=== PATIENT | male | born 1985 | race Caucasian/White ===

== ENCOUNTER 2016-03-29 16:21 | Emergency (ER) | payer OTHER ==
[2016-03-29 17:09] VITALS: BP 150/91; PULSE 95; RESP 18; TEMP 99.5
--- NOTE | 2016-03-29 18:29 | ED ---
General Adult HPI - General Chief complaint: Back Pain/Injury Stated complaint: Fall/Back Pain Time Seen by Provider: 03/29/16 18:01 Source: patient, RN notes reviewed Mode of arrival: ambulatory Limitations: no limitations - History of Present Illness Initial comments: Patient a 30-year-old male who presents emergency room today with chief complaint of increased lower back pain on the right side after a fall. He does with this fall occurred 2 weeks ago. He states he slipped falling down. Admits that he's been having some discomfort of the right lower back it's worse with movements. Patient denies any bowel or bladder incontinence or retention. Denies any saddle anesthesia. Denies any lumbar radiculopathy. Patient denies any other complaints or associated symptoms. Patient has not tried any medications at home for this. Patient denies any recent fever, chills, shortness of breath, chest pain, abdominal pain, nausea or vomiting, numbness or tingling, dysuria or hematuria, constipation or diarrhea, headaches or visual changes, or any other complaints. - Related Data Previous Rx's Medication Instructions Recorded Cyclobenzaprine [Flexeril] 10 mg PO TID #20 tab 03/29/16 Dexamethasone 0.75 mg PO DIRECTED #12 tablet 03/29/16 Ibuprofen [Motrin] 600 mg PO Q6HR PRN #40 day 03/29/16 Allergies Allergy/AdvReac Type Severity Reaction Status Date / Time No Known Allergies Allergy Verified 03/29/16 18:21 Review of Systems ROS Statement: Those systems with pertinent positive or pertinent negative responses have been documented in the HPI. ROS Other: All systems not noted in ROS Statement are negative. Past Medical History Additional Past Medical History / Comment(s): muscular dystrophy History of Any Multi-Drug Resistant Organisms: None Reported Additional Past Surgical History / Comment(s): bilateral feet, right arm Past Psychological History: No Psychological Hx Reported Smoking Status: Current every day smoker Past Alcohol Use History: None Reported Past Drug Use History: None Reported General Exam - General Exam Comments Initial Comments: General: The patient is awake and alert, in no distress, and does not appear acutely ill. Eye: Pupils are equal, round and reactive to light, extra-ocular movements are intact. No nystagmus. There is normal conjunctiva bilaterally. No signs of icterus. Ears, nose, mouth and throat: There are moist mucous membranes and no oral lesions. Neck: The neck is supple, there is no tenderness or JVD. Cardiovascular: There is a regular rate and rhythm. No murmur, rub or gallop is appreciated. Respiratory: Lungs are clear to auscultation, respirations are non-labored, breath sounds are equal. No wheezes, stridor, rales, or rhonchi. Gastrointestinal: Soft, non-distended, non-tender abdomen without masses or organomegaly noted. There is no rebound or guarding present. No CVA tenderness. Bowel sounds are unremarkable. Musculoskeletal: Normal appearance of the thoracic, lumbar spine. No step- offs deformity appreciated. No tenderness over spinous processes. Patient does have paravertebral tenderness to the right lower lumbar. Strength 5/5. Sensation intact. Pulses equal bilaterally 2+. Neurological: A&O x 3. CN II-XII intact, There are no obvious motor or sensory deficits. Coordination appears grossly intact. Speech is normal. Skin: Skin is warm and dry and no rashes or lesions are noted. Psychiatric: Cooperative, appropriate mood & affect, normal judgment. Limitations: no limitations Course Vital Signs 03/29/16 17:06 Temperature 99.5 F Pulse Rate 95 Respiratory 18 Rate Blood Pressure 150/91 O2 Sat by Pulse 97 Oximetry Medical Decision Making - Medical Decision Making Patient reexamined at this time shows no signs of distress. X-rays reviewed by myself and attending physician Dr. Richardson. Patient will be discharged home on muscle relaxer, anti-inflammatories and steroid Dosepak. Disposition Clinical Impression: Acute low back pain Disposition: HOME SELF-CARE Condition: Good Instructions: Acute Low Back Pain (ED) Additional Instructions: Please use medication as discussed. Please follow-up with family doctor in the next 2 days of symptoms have not improved. Please return to emergency room if the symptoms increase or worsen or for any other concerns. Prescriptions: Cyclobenzaprine [Flexeril] 10 mg PO TID #20 tab Dexamethasone 0.75 mg PO DIRECTED #12 tablet Ibuprofen [Motrin] 600 mg PO Q6HR PRN #40 day PRN Reason: Pain Time of Disposition: 18:50
--- NOTE | 2016-03-29 18:57 | XR ---
EXAMINATION TYPE: XR lumbar spine 2 or 3V DATE OF EXAM: 03/29/2016 6:29 PM CLINICAL HISTORY: EXAMINATION TYPE: XR lumbar spine 2 or 3V DATE OF EXAM: 03/29/2016 6:29 PM COMPARISON: NONE HISTORY: Low back pain and right hip pain after fall weeks ago. TECHNIQUE: Frontal and lateral radiograph were obtained. FINDINGS: There are 5 lumbar type vertebral bodies identified although there is sacralization of the L5 vertebral body on the left. The lumbar spine shows satisfactory alignment without evidence of acu te fracture or dislocation. There is very small degree of dextroscoliotic curvature of the thoracolum bar junction and lower aspect with levoscoliotic curvature of the thoracolumbar junction in its super ior aspect. This may be positional in nature. Vertebral body heights and disk space heights are withi n normal limits. The oblique images appear within normal limits. The overlying soft tissue appears unremarkable. IMPRESSION: No evidence of fracture or dislocation.
== END 2016-03-29 19:13 | disposition home or self-care (01) ==
LOC: SUPCPDRO 16:21 → EC 16:21
DX: M54.5 Low back pain (principal); W01.0XXA Fall on same level from slipping, tripping and stumbling without subsequent striking against object, initial encounter; F17.200 Nicotine dependence, unspecified, uncomplicated
CPT/HCPCS: 72100; 99283

== ENCOUNTER 2021-06-18 13:22 | Inpatient (IN) | payer MEDICARE, OTHER ==
[2021-06-18 16:10] LABS: ALT 48 U/L (4-49); AST 71 U/L (17-59); African American GFR (CKD) >90 (>60 ml/min/1.73 sqM); Albumin 4.2 g/dL (3.5-5.0); Alkaline Phosphatase 143 U/L (38-126); Anion Gap 7 mmol/L; Blood Urea Nitrogen 5 mg/dL (9-20); Calcium 8.9 mg/dL (8.4-10.2); Carbon Dioxide 36 mmol/L (22-30); Chloride 94 mmol/L (98-107); Glucose 96 mg/dL (74-99); Non-African American GFR(CKD) >90 (>60 ml/min/1.73 sqM); Potassium 4.2 mmol/L (3.5-5.1); Sodium 137 mmol/L (137-145); Total Bilirubin 1.1 mg/dL (0.2-1.3); Total Protein 7.6 g/dL (6.3-8.2)
[2021-06-18 16:13] LABS: INR 1.1 (<1.2); Partial Thromboplastin Time 26.1 sec (22.0-30.0); Prothrombin Time 11.5 sec (9.0-12.0)
--- NOTE | 2021-06-18 16:23 | XR ---
EXAMINATION TYPE: XR chest 2V DATE OF EXAM: 06/18/2021 COMPARISON: 07/21/2014 HISTORY: Pain difficulty breathing TECHNIQUE: 2 views FINDINGS: There is some atelectasis at the lung bases. Heart size is normal. No heart failure. There are chest leads. Bony thorax is intact. There is slight thoracic dextroscoliosis. IMPRESSION: There is some atelectasis at the lung bases which is new compared to old exam.
[2021-06-18 16:38] LABS: Basophils # (A) 0.1 k/uL (0-0.2); Basophils % (A) 1 %; Eosinophils # (A) 0.1 k/uL (0-0.7); Eosinophils % (A) 2 %; Lymphocytes # (A) 1.7 k/uL (1.0-4.8); Lymphocytes % (A) 20 %; MCH 35.9 pg (25.0-35.0); MCHC 32.3 g/dL (31.0-37.0); Macrocytosis Marked; Mean Platelet Volume 7.4; Monocytes # (A) 0.6 k/uL (0-1.0); Monocytes % (A) 8 %; Neutrophils # (A) 5.6 k/uL (1.3-7.7); Neutrophils % (A) 67 %; Platelet Count 200 k/uL (150-450); RBC 5.02 m/uL (4.30-5.90); RDW 14.7 % (11.5-15.5); WBC 8.3 k/uL (3.8-10.6)
[2021-06-18 16:39] LABS: HCT 55.7 % (39.0-53.0)
--- NOTE | 2021-06-18 17:57 | ED ---
General Adult HPI - General Chief complaint: Shortness of Breath Stated complaint: JEFF,Bilateral Leg Pain and Swelling Time Seen by Provider: 06/18/21 15:22 Source: patient, RN notes reviewed, old records reviewed Mode of arrival: wheelchair Limitations: no limitations - History of Present Illness Initial comments: She is a 35-year-old male with history of muscular dystrophy who presents emergency Department complaining of two-week history of progressive shortness of breath, difficulty breathing, as well as swelling to bilateral legs. No history of this previously. No cardiac history. Hasn't followed up with doctor in quite some time. No history of blood clots. Denies any cough or fevers. Denies any chest pain. Denies abdominal pain, nausea, vomiting. His no other acute concerns at this time.Endorses orthopnea, PND, exertional dyspnea, lower extremity edema. - Related Data Home Medications Medication Instructions Recorded Confirmed No Known Home Medications 06/18/21 06/18/21 Allergies Allergy/AdvReac Type Severity Reaction Status Date / Time amoxicillin Allergy Rash/Hives Verified 06/18/21 17:38 Review of Systems ROS Statement: Those systems with pertinent positive or pertinent negative responses have been documented in the HPI. Review of Systems: CONST: Denies fever EYES: Denies blurry vision ENT: Denies nasal congestion C/V: Denies Chest pain RESP: Endorses shortness of breath GI: Denies abdominal pain : Denies dysuria SKIN: Denies rash. MSK: Denies joint pain. NEURO: Denies headache ROS Other: All systems not noted in ROS Statement are negative. Past Medical History Additional Past Medical History / Comment(s): muscular dystrophy History of Any Multi-Drug Resistant Organisms: None Reported Additional Past Surgical History / Comment(s): bilateral feet, right arm Past Psychological History: No Psychological Hx Reported Smoking Status: Current every day smoker Past Alcohol Use History: None Reported Past Drug Use History: None Reported General Exam - General Exam Comments Initial Comments: General: Appears in no acute distress. HEAD: Normal with no signs of head trauma. EYES: PERRLA, EOMI, conjunctiva normal, no discharge. ENT: Hearing grossly intact, normal oropharynx. RESPIRATORY: Clear breath sounds bilaterally. No wheezes, rales, or rhonchi. Hypoxic on room air to 80%. Improves to above 95% with 2 L nasal cannula. No increased work of breathing. C/V: Tachycardic in triage. S1 and S2 auscultated. Peripheral pulses 2+ intact throughout. 2+ pitting edema bilateral lower extremities up to level the knee. ABD: Abd is soft, nontender, nondistended EXT: Normal range of motion, no obvious deformity SKIN: No rashes or lesions observed on exposed skin. NEURO: Alert and oriented 4. Limitations: no limitations Course Vital Signs 06/18/21 06/18/21 06/18/21 13:25 16:28 16:44 Temperature 98.5 F Pulse Rate 107 H Respiratory 20 24 Rate Blood Pressure 162/100 154/96 O2 Sat by Pulse 92 L Oximetry 06/18/21 17:25 Temperature Pulse Rate 86 Respiratory 18 Rate Blood Pressure 157/103 O2 Sat by Pulse 97 Oximetry Procedures - [facility] Protocol (Time Out) Nurse: Francia Hernandez Medical Decision Making - Medical Decision Making Based on the patient's presentation and physical exam I'm concerned for possible acute cardio pulmonary etiology for his current symptoms. Cannot rule out pulmonary embolus and. Screening d-dimer and cardiac workup will be obtained. Covid swab will be obtained. Patient was placed on 2 L nasal cannula and oxygenation improved. Vital signs of head and hypoxia remarkable for mild tach ycardia. Remainder the vitals are within normal limits. He was in agreement this plan. EKG showed no signs of ischemia. Chest x-ray reveals new atelectasis in the bilateral lung bases. Hemoglobin is elevated to 18. D-dimer is elevated to 1.4 to. Carbon dioxide is elevated at 36 likely secondary to his hypoxia and dyspnea. Troponin is minimally elevated to 0.035 likely secondary to heart fa ilure, BNP is elevated for his age to 549. Covid and fluent negative. I discussed results patient. He is resting comfortably at this time. I like to obtain a CT angiogram to rule out possibility of pulmonary was in. I was in agreement this plan. CT PE revealed no signs of PE. It does reveal bilateral patchy atelectasis at both lung bases. I discussed the results with the patient who Expressed understanding. He'll be started on Lasix twice a day. She will be given an aspirin as well as started on DVT prophylaxis heparin. He was in agreement this plan. Echo was ordered. Cardiology was consulted. I discussed the case with the admitting physician, Dr. Gairbay was in agreement with the plan. Admitted to a telemetry bed. - Lab Data Result diagrams: 06/18/21 15:45 06/18/21 15:45 Lab Results 06/18/21 06/18/21 06/18/21 Range/Units 15:45 15:45 15:45 WBC 8.3 (3.8-10.6) k/uL RBC 5.02 (4.30-5.90) m/uL Hgb 18.0 H (13.0-17.5) gm/dL Hct 55.7 H (39.0-53.0) % MCV 111.0 H (80.0-100.0) fL MCH 35.9 H (25.0-35.0) pg MCHC 32.3 (31.0-37.0) g/dL RDW 14.7 (11.5-15.5) % Plt Count 200 (150-450) k/uL MPV 7.4 Neutrophils % 67 % Lymphocytes % 20 % Monocytes % 8 % Eosinophils % 2 % Basophils % 1 % Neutrophils # 5.6 (1.3-7.7) k/uL Lymphocytes # 1.7 (1.0-4.8) k/uL Monocytes # 0.6 (0-1.0) k/uL Eosinophils # 0.1 (0-0.7) k/uL Basophils # 0.1 (0-0.2) k/uL Macrocytosis Marked A PT 11.5 (9.0-12.0) sec INR 1.1 (<1.2) APTT 26.1 (22.0-30.0) sec D-Dimer 1.42 H (<0.60) mg/L FEU Sodium 137 (137-145) mmol/L Potassium 4.2 (3.5-5.1) mmol/L Chloride 94 L (98-107) mmol/L Carbon Dioxide 36 H (22-30) mmol/L Anion Gap 7 mmol/L BUN 5 L (9-20) mg/dL Creatinine 0.82 (0.66-1.25) mg/dL Est GFR (CKD-EPI)AfAm >90 (>60 ml/min/1.73 sqM) Est GFR (CKD-EPI)NonAf >90 (>60 ml/min/1.73 sqM) Glucose 96 (74-99) mg/dL Plasma Lactic Acid Omid (0.7-2.0) mmol/L Calcium 8.9 (8.4-10.2) mg/dL Total Bilirubin 1.1 (0.2-1.3) mg/dL AST 71 H (17-59) U/L ALT 48 (4-49) U/L Alkaline Phosphatase 143 H (38-126) U/L Troponin I (0.000-0.034) ng/mL NT-Pro-B Natriuret Pep pg/mL Total Protein 7.6 (6.3-8.2) g/dL Albumin 4.2 (3.5-5.0) g/dL Coronavirus (PCR) (Not Detectd) Influenza Type A RNA (Not Detectd) Influenza Type B (PCR) (Not Detectd) 06/18/21 06/18/21 06/18/21 Range/Units 15:45 15:45 15:45 WBC (3.8-10.6) k/uL RBC (4.30-5.90) m/uL Hgb (13.0-17.5) gm/dL Hct (39.0-53.0) % MCV (80.0-100.0) fL MCH (25.0-35.0) pg MCHC (31.0-37.0) g/dL RDW (11.5-15.5) % Plt Count (150-450) k/uL MPV Neutrophils % % Lymphocytes % % Monocytes % % Eosinophils % % Basophils % % Neutrophils # (1.3-7.7) k/uL Lymphocytes # (1.0-4.8) k/uL Monocytes # (0-1.0) k/uL Eosinophils # (0-0.7) k/uL Basophils # (0-0.2) k/uL Macrocytosis PT (9.0-12.0) sec INR (<1.2) APTT (22.0-30.0) sec D-Dimer (<0.60) mg/L FEU Sodium (137-145) mmol/L Potassium (3.5-5.1) mmol/L Chloride (98-107) mmol/L Carbon Dioxide (22-30) mmol/L Anion Gap mmol/L BUN (9-20) mg/dL Creatinine (0.66-1.25) mg/dL Est GFR (CKD-EPI)AfAm (>60 ml/min/1.73 sqM) Est GFR (CKD-EPI)NonAf (>60 ml/min/1.73 sqM) Glucose (74-99) mg/dL Plasma Lactic Acid Omid 1.3 (0.7-2.0) mmol/L Calcium (8.4-10.2) mg/dL Total Bilirubin (0.2-1.3) mg/dL AST (17-59) U/L ALT (4-49) U/L Alkaline Phosphatase (38-126) U/L Troponin I 0.035 H* (0.000-0.034) ng/mL NT-Pro-B Natriuret Pep 549 pg/mL Total Protein (6.3-8.2) g/dL Albumin (3.5-5.0) g/dL Coronavirus (PCR) (Not Detectd) Influenza Type A RNA (Not Detectd) Influenza Type B (PCR) (Not Detectd) 06/18/21 06/18/21 Range/Units 15:45 15:54 WBC (3.8-10.6) k/uL RBC (4.30-5.90) m/uL Hgb (13.0-17.5) gm/dL Hct (39.0-53.0) % MCV (80.0-100.0) fL MCH (25.0-35.0) pg MCHC (31.0-37.0) g/dL RDW (11.5-15.5) % Plt Count (150-450) k/uL MPV Neutrophils % % Lymphocytes % % Monocytes % % Eosinophils % % Basophils % % Neutrophils # (1.3-7.7) k/uL Lymphocytes # (1.0-4.8) k/uL Monocytes # (0-1.0) k/uL Eosinophils # (0-0.7) k/uL Basophils # (0-0.2) k/uL Macrocytosis PT (9.0-12.0) sec INR (<1.2) APTT (22.0-30.0) sec D-Dimer (<0.60) mg/L FEU Sodium (137-145) mmol/L Potassium (3.5-5.1) mmol/L Chloride (98-107) mmol/L Carbon Dioxide (22-30) mmol/L Anion Gap mmol/L BUN (9-20) mg/dL Creatinine (0.66-1.25) mg/dL Est GFR (CKD-EPI)AfAm (>60 ml/min/1.73 sqM) Est GFR (CKD-EPI)NonAf (>60 ml/min/1.73 sqM) Glucose (74-99) mg/dL Plasma Lactic Acid Omid (0.7-2.0) mmol/L Calcium (8.4-10.2) mg/dL Total Bilirubin (0.2-1.3) mg/dL AST (17-59) U/L ALT (4-49) U/L Alkaline Phosphatase (38-126) U/L Troponin I (0.000-0.034) ng/mL NT-Pro-B Natriuret Pep pg/mL Total Protein (6.3-8.2) g/dL Albumin (3.5-5.0) g/dL Coronavirus (PCR) Not Detected (Not Detectd) Influenza Type A RNA Not Detected (Not Detectd) Influenza Type B (PCR) Not Detected (Not Detectd) - EKG Data -: EKG Interpreted by Me EKG Comments: 12-lead Electrocardiogram Interpretation Note EKG was reviewed and interpreted by myself. 12-lead ECG performed at 1333 is interpreted by me as revealing normal sinus rhythm at a rate of 97 beats per minute. [place] is normal. HI intervals 135 ms, QRS duration is 90 ms, QTc is 413 ms. Patient has an isolated T-wave inversion in lead III.. There were other acute no ST or T wave abnormalities to suggest myocardial ischemia or injury. R wave progression across the precordium was satisfactory. By my interpretation this EKG is non-diagnostic for acute ischemia. Disposition Clinical Impression: Congestive heart failure, Acute respiratory failure with hypoxia Disposition: ADMITTED IP TO THIS HOSP Condition: Stable Time of Disposition: 18:50
--- NOTE | 2021-06-18 18:55 | CT ---
EXAMINATION TYPE: CT chest angio for PE DATE OF EXAM: 06/18/2021 COMPARISON: None HISTORY: Elevated d-dimer, concern for PE. Denies cardiac/pulmonary hx. CT DLP: 290.8 mGycm Automated exposure control for dose reduction was used. CONTRAST: Performed with IV Contrast, patient injected with 100 mL of Isovue 370. There are Three-D postprocessed images. There is some patchy atelectasis at the lung bases. Heart size is fairly normal. No pericardial effus ion. There are no hilar masses. There is no mediastinal adenopathy. Thoracic aorta appears intact. No dissection. 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 There is no evidence of filling defect in the pulmonary arteries. Thoracic spine is intact. No compression fracture. IMPRESSION: No evidence of pulmonary embolism. Patchy atelectasis at both lung bases.
[2021-06-18] MEDS ORDERED: NALOXONE 0.4 MG/ML 1 ML VIAL IV PRN (19:08)
[2021-06-18] MEDS ORDERED: ASPIRIN 81 MG PO STA (19:14)
[2021-06-18] MEDS: FUROSEMIDE 10 MG/ML 4 ML VIAL IV SCH (20:00)
[2021-06-19] MEDS: HEPARIN SODIUM,PORCINE/PF 5,000 UNIT/0.5 ML SYRINGE SQ SCH ×4 (02:57→23:46)
[2021-06-19] MEDS ORDERED: FUROSEMIDE 10 MG/ML 4 ML VIAL ONE (07:00)
[2021-06-19] MEDS ORDERED: HEPARIN SODIUM,PORCINE 5,000 UNIT/ML 1 ML VIAL ONE (07:00)
[2021-06-19 07:12] LABS: Basophils # (A) 0.1 k/uL (0-0.2); Basophils % (A) 2 %; Eosinophils # (A) 0.2 k/uL (0-0.7); Eosinophils % (A) 3 %; HCT 54.9 % (39.0-53.0); HGB 16.7 gm/dL (13.0-17.5); Hypochromasia Slight; Lymphocytes # (A) 1.5 k/uL (1.0-4.8); Lymphocytes % (A) 20 %; MCH 34.2 pg (25.0-35.0); MCHC 30.5 g/dL (31.0-37.0); MCV 112.3 fL (80.0-100.0); Macrocytosis Marked; Mean Platelet Volume 7.3; Monocytes # (A) 0.7 k/uL (0-1.0); Monocytes % (A) 9 %; Neutrophils # (A) 4.7 k/uL (1.3-7.7); Neutrophils % (A) 65 %; Platelet Count 165 k/uL (150-450); RBC 4.89 m/uL (4.30-5.90); RDW 13.8 % (11.5-15.5); WBC 7.2 k/uL (3.8-10.6)
[2021-06-19 07:28] LABS: African American GFR (CKD) >90 (>60 ml/min/1.73 sqM); Anion Gap 4 mmol/L; Blood Urea Nitrogen 7 mg/dL (9-20); Calcium 8.5 mg/dL (8.4-10.2); Carbon Dioxide 38 mmol/L (22-30); Chloride 93 mmol/L (98-107); Glucose 87 mg/dL (74-99); Non-African American GFR(CKD) >90 (>60 ml/min/1.73 sqM); Sodium 135 mmol/L (137-145)
[2021-06-19] MEDS ORDERED: lisinopriL 10 MG TAB PO SCH (11:15)
[2021-06-19] MEDS ORDERED: METOPROLOL SUCCINATE (ER) 25 MG TAB.ER.24H PO SCH (11:15)
[2021-06-19] MEDS: FUROSEMIDE 10 MG/ML 4 ML VIAL IV SCH ×2 (12:02→18:45)
--- NOTE | 2021-06-19 13:03 | CONS ---
CONSULTATION CHIEF COMPLAINT: Leg edema and shortness of breath. 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 There is no prior history of coronary artery disease or congestive heart failure. There is no prior history of valvular heart disease. The patient is currently not on any medications. He has history of smoking and history of ETOH abuse. On admission, he was found to have bilateral leg edema and was started on Lasix. His BNP is not particularly elevated. Chest x-ray does not show any pulmonary congestion. He had elevated D-dimer and went on to have a CT scan of the chest that is negative for pulmonary embolism. The patient's clinical presentation is consistent with acute onset congestive heart failure. We will obtain a 2D echo to assess his LV function. He could have hypertensive heart disease. His blood pressures are elevated. PAST MEDICAL HISTORY: Negative for hypertension, diabetes, dyslipidemia, significant for muscular dystrophy. MEDICATIONS: None. ALLERGIES: None. FAMILY HISTORY: Negative for premature coronary artery disease. SOCIAL HISTORY: Significant for smoking and ETOH abuse. There is no history of drug abuse. REVIEW OF SYSTEMS: HEENT: Unremarkable. CARDIAC as described above. RESPIRATORY as described above. GI negative. : Negative. ALLERGY/IMMUNOLOGY: None. SKIN negative. MUSCULOSKELETAL: Significant for muscular dystrophy. PSYCHOSOCIAL: Negative. ENDOCRINE: Negative. CONSTITUTIONAL negative. ONCOLOGICAL negative. EXAM: Comfortable at rest. Heart rate is 90 beats per minute. Blood pressure is 140/100, respiratory rate is 18. There is no jugular venous distention. Carotid upstroke is normal. There is no bruit. CHEST exam reveals good air entry bilaterally. HEART exam reveals first and second heart sounds. No gallop. No murmur. No rub. ABDOMEN is soft. Exam of EXTREMITIES reveals bilateral moderate pitting edema. EKG shows sinus rhythm with poor R-wave progression. The first set of troponin is slightly elevated with subsequent 2 troponins abnormal. Renal functions are normal. BNP is not particularly elevated. CT chest is negative. ASSESSMENT: 1. Acute onset congestive heart failure of unclear etiology. 2. Uncontrolled hypertension. 3. Mildly elevated troponin of unclear clinical significance. PLAN: I will obtain a 2D echo to assess his LV function and wall motion. If he has LV systolic dysfunction and wall motion abnormalities, he will need a cardiac catheterization to rule out ischemic heart disease. We will treat his heart failure with Lasix, beta blockers, MOOSE inhibitors and optimal control of blood pressure. I advised the patient to quit smoking and quit drinking. MMODL / IJN: [id number] /
--- NOTE | 2021-06-19 13:10 | HP ---
HISTORY AND PHYSICAL This is a 35-year-old white male with a history of muscular dystrophy who came to the ER with progressive shortness of breath, difficulty with swelling to his lower legs. He has no cardiac history. No history of blood clots. No cough or fever. No chills. Medicines: None. Allergies: AMOXICILLIN. Fourteen-point review of systems otherwise negative. Past medical history is positive only for muscular dystrophy. He is a current everyday smoker. On physical examination, blood pressure is 150s to 160s over 90s to 100s, pulse rate is like 107, respiratory rate 20 to 24, temperature 98.5. CARDIOVASCULAR: S1, S2. ABDOMEN: Soft. EXTREMITIES: Two plus edema. NEUROLOGIC: Alert and oriented x3. HEAD: No trauma. No bruising. SKIN: No rashes. PUPILS: Equal, round and reactive. LUNGS: Mild wheeze. Decreased breath sounds. Down to 80% on room air. Oxygen 95% with 2 L. ASSESSMENT: Acute hypoxemia of unclear etiology. Will get Pulmonology involved and Cardiology. We are going to give him some Lasix for possible CHF. Echo was ordered. We are going to do a CT scan of his chest for sure due to elevated CO2, possibly sleep apnea. COVID and influenza are negative. Continue on 2 L of oxygen. Prognosis guarded. MMODL / IJN: [id number] /
[2021-06-19] MEDS: METOPROLOL SUCCINATE (ER) 25 MG TAB.ER.24H PO SCH (13:29)
[2021-06-19] MEDS: lisinopriL 10 MG TAB PO SCH (13:29)
[2021-06-20] MEDS ORDERED: ZOLPIDEM 5 MG TAB PO ONE (00:16)
[2021-06-20] MEDS: FUROSEMIDE 10 MG/ML 4 ML VIAL IV SCH ×2 (06:28→18:05)
--- NOTE | 2021-06-20 06:40 | XR ---
EXAMINATION TYPE: XR chest 2V DATE OF EXAM: 06/20/2021 COMPARISON: Chest x-ray and CTA chest from 2 days ago. HISTORY: Hypoxia and lower lung infiltrates TECHNIQUE: Frontal and lateral views of the chest are obtained. FINDINGS: Persistent low lung volumes and bibasilar opacities. The cardiac silhouette size is stabl e and mildly enlarged. Underlying Scoliosis redemonstrated. IMPRESSION: Persistent poor inspiration. Persistent mild cardiomegaly with bibasilar acute infiltrat e and/or atelectasis. No significant change from 2 days earlier.
[2021-06-20] MEDS: lisinopriL 10 MG TAB PO SCH (08:29)
[2021-06-20] MEDS: HEPARIN SODIUM,PORCINE/PF 5,000 UNIT/0.5 ML SYRINGE SQ SCH ×3 (08:29→23:25)
[2021-06-20] MEDS: METOPROLOL SUCCINATE (ER) 25 MG TAB.ER.24H PO SCH (08:30)
[2021-06-20] MEDS ORDERED: lisinopriL 10 MG TAB PO STA (08:46)
[2021-06-20] MEDS: amLODIPine 5 MG TAB PO SCH (11:41)
--- NOTE | 2021-06-20 12:22 | P.PN ---
Subjective Progress Note Date: 06/20/21 HISTORY OF PRESENT ILLNESS: Patient examined this morning in the intensive care unit. Patient denies chest pain or pressure. He denies shortness of breath. He remains on IV Lasix 40 mg every 12 hours. Lower extremity edema is improving. Patient's blood pressure remains elevated this morning with a systolic in the 160s. PHYSICAL EXAM: VITAL SIGNS: Reviewed. GENERAL: Well-developed in no acute distress. NECK: Supple. No JVD or thyromegaly LUNGS: Respirations even and unlabored. Lungs diminished to auscultation bilaterally. HEART: Regular rate and rhythm. S1 and S2 heard. EXTREMITIES: Normal range of motion. No clubbing or cyanosis. Peripheral pu lses intact. 1-2+ bilateral lower extremity edema ASSESSMENT: Acute onset congestive heart failure of unclear etiology, type unknown, echo pending Uncontrolled hypertension Mildly elevated troponin of unclear significance PLAN: Continue IV Lasix Monitor kidney function Daily weights Accurate I&O Monitor blood pressure Increase lisinopril to 20mg daily Norvasc 5 mg daily Abstinence from alcohol encouraged Smoking cessation recommended Further recommendations pending patient's course Nurse practitioner note has been reviewed by physician. Signing provider agrees with the documented findings, assessment, and plan of care. Objective - Vital Signs Vital signs: Vital Signs Temp 98.4 F 06/20/21 12:00 Pulse 73 06/20/21 12:00 Resp 16 06/20/21 12:00 BP 148/101 06/20/21 12:00 Pulse Ox 94 L 06/20/21 12:00 Intake & Output 06/19/21 06/20/21 06/20/21 18:59 06:59 18:59 Output Total 1200 Balance -1200 Weight 83.915 kg 83 kg Output: Urine 1200 Other: # Voids 3 - Labs CBC & Chem 7: 06/19/21 06:00 06/19/21 06:40 Labs: Microbiology - Last 24 Hours (Table) 06/18/21 15:45 Blood Culture - Preliminary Blood No Growth after 24 hours 06/18/21 15:30 Blood Culture - Preliminary Blood No Growth after 24 hours
--- NOTE | 2021-06-20 17:45 | P.CNPUL ---
History of Present Illness Consult date: 06/20/21 (Late entry note, patient evaluated this morning) Reason for consult: dyspnea, cough, hypoxemia Chief complaint: Shortness of breath History of present illness: Patient is a 35-year-old pleasant male with prior history of muscular dystrophy came into the hospital for evaluation off progressive shortness of breath which is been going on for last 2 weeks in addition patient was having lower extremity edema dry nonproductive cough is present, patient admitted into the hospital with hypoxia and desaturation oxygen saturation is mid to low 80s, with 4 L sats remains over around 88-90% however this morning oxygen saturation significantly improve on 4 L and 95-96% patient feels slightly better on specific questioning denies any chest pain or radiation of pain denies any hemoptysis has ongoing cough, denies any loss of consciousness or weakness dizziness lightheadedness, denies any fever and chills however does have problems associated orthopnea and dyspnea and PND which all have been progressive. Patient is noncompliant by history does not seek medical care mostly he is not on any medications. He has a extensive history of smoking and nicotine use used to smoke one and half to 2 packs per day. On arrival his chest x-ray significant for atelectasis on the lung bases, EKG is normal sinus rhythm, follow-up chest x-ray earlier this morning cardiomegaly interstitial edema by basilar atelectasis versus infil trate. CBC mild erythrocytosis along with macrocytic appearance, kidney function within normal limit, troponin 2. initial 0.035 followed by a second set 0.0-8, covert as well as influenza negative, patient currently being treated with the antihypertensive agents along with diuretics. Throughout the stay blood pressure was elevated ranging from 157/100 Review of Systems All systems: negative Past Medical History Past Medical History: GERD/Reflux, Musculoskeletal Disorder, Neurologic Disorder Additional Past Medical History / Comment(s): muscular dystrophy, low back pain History of Any Multi-Drug Resistant Organisms: None Reported Past Surgical History: Orthopedic Surgery Additional Past Surgical History / Comment(s): R arm fracture with surgery, bilateral feet surgery d/t complications of MD Past Anesthesia/Blood Transfusion Reactions: No Reported Reaction Smoking Status: Current every day smoker - Past Family History Father Family Medical History: Hyperlipidemia, Hypertension Mother Family Medical History: Hyperlipidemia, Hypertension Medications and Allergies Home Medications Medication Instructions Recorded Confirmed Type No Known Home Medications 06/18/21 06/18/21 History Allergies Allergy/AdvReac Type Severity Reaction Status Date / Time amoxicillin Allergy Rash/Hives Verified 06/18/21 17:38 Physical Exam Vitals: Vital Signs Temp Pulse Resp BP Pulse Ox 06/20/21 15:15 76 17 152/99 93 L 06/20/21 12:00 98.4 F 73 16 148/101 94 L 06/20/21 08:00 99 F 84 17 160/110 92 L 06/20/21 04:00 98.3 F 83 16 144/99 93 L 06/20/21 02:00 80 20 06/19/21 23:49 80 20 157/99 91 L 06/19/21 20:00 81 16 144/112 94 L 06/19/21 17:51 148/105 Intake and Output 06/20/21 06/20/21 06/20/21 06:59 14:59 22:59 Output Total 400 700 Balance -400 -700 Output: Urine 400 700 Other: Weight 83 kg - Constitutional General appearance: average body habitus, disheveled, morbidly obese - EENT Eyes: EOMI, PERRLA ENT: normal oropharynx Ears: bilateral: normal - Neck Neck: normal ROM Carotids: bilateral: upstroke normal - Respiratory Respiratory: bilateral: rales (Bilateral and inspiratory), wheezing (Fine on forced expiration) - Cardiovascular Rhythm: regular Heart sounds: normal: S1, S2 - Gastrointestinal General gastrointestinal: normal bowel sounds, soft - Integumentary Integumentary: normal turgor - Neurologic Neurologic: CNII-XII intact - Musculoskeletal Musculoskeletal: gait normal, generalized weakness, strength equal bilaterally - Psychiatric Psychiatric: A&O x's 3, appropriate affect, intact judgment & insight Results - Laboratory Findings CBC and BMP: 06/19/21 06:00 06/19/21 06:40 PT/INR, D-dimer PT 11.5 sec (9.0-12.0) 06/18/21 15:45 INR 1.1 (<1.2) 06/18/21 15:45 D-Dimer 1.42 mg/L FEU (<0.60) H 06/18/21 15:45 Abnormal lab findings: Abnormal Labs 06/18/21 06/18/21 06/18/21 15:45 15:45 15:45 Hgb 18.0 H Hct 55.7 H MCV 111.0 H MCH 35.9 H MCHC Macrocytosis Marked A D-Dimer 1.42 H Sodium Chloride 94 L Carbon Dioxide 36 H BUN 5 L AST 71 H Alkaline Phosphatase 143 H Troponin I 06/18/21 06/19/21 06/19/21 15:45 06:00 06:40 Hgb Hct 54.9 H MCV 112.3 H MCH MCHC 30.5 L Macrocytosis Marked A D-Dimer Sodium 135 L Chloride 93 L Carbon Dioxide 38 H BUN 7 L AST Alkaline Phosphatase Troponin I 0.035 H* - Diagnostic Findings Chest x-ray: report reviewed, image reviewed CT scan - chest: report reviewed, image reviewed (Finding as noted above) Assessment and Plan Assessment: Acute hypoxic respiratory failure Acute on chronic diastolic heart failure Hypertensive heart failure Bilateral basal atelectasis Extensive history of smoking and nicotine use History of muscular dystrophy Plan: Gentle diuresis Obtain echocardiogram Hold on steroids and antibiotics for now Obtained pro-calcitonin level Continue antihypertensive agents Patient likely has a sleep disorder breathing and sleep apnea to be evaluated further outpatient basis Time with Patient: Greater than 30
[2021-06-20 20:05] LABS: Glucose,Whole Blood 108 mg/dL (75-99)
[2021-06-21 05:25] VITALS: RESP 18
--- NOTE | 2021-06-21 07:37 | CA ---
Transthoracic Echo Report Name: Mio Davison Age: 35 Gender: M : 1985 Exam Date: 06/20/2021 10:42 Exam Location: [facility] Ht (in): 66 Wt (lb): 182 Ordering Physician: Margarita Pineda Attending/Referring Phys: [id number], Edwin [place] [employer] Jessika Garcia RDCS Procedure CPT: Indications: LV function Cardiac Hx: Technical Quality: Fair Contrast 1: Total Dose (mL): Contrast 2: Total Dose (mL): MEASUREMENTS (Male / Female) Normal Values 2D ECHO LV Diastolic Diameter PLAX 3.7 cm 4.2 - 5.9 / 3.9 - 5.3 cm LV Systolic Diameter PLAX 2.5 cm IVS Diastolic Thickness 1.2 cm 0.6 - 1.0 / 0.6 - 0.9 cm LVPW Diastolic Thickness 1.2 cm 0.6 - 1.0 / 0.6 - 0.9 cm LV Relative Wall Thickness 0.7 RV Internal Dim ED PLAX 2.2 cm LA Volume 46.4 cm 18 - 58 / 22 - 52 cm M-MODE Aortic Root Diameter MM 3.4 cm LA Systolic Diameter MM 4.1 cm LA Ao Ratio MM 1.2 MV E Point Septal Separation 0.1 cm AV Cusp Separation MM 2.3 cm DOPPLER AV Peak Velocity 123.7 cm/s AV Peak Gradient 6.1 mmHg LVOT Peak Velocity 96.5 cm/s LVOT Peak Gradient 3.7 mmHg MV Area PHT 3.3 cm Mitral E Point Velocity 64.5 cm/s Mitral A Point Velocity 79.8 cm/s Mitral E to A Ratio 0.8 MV Deceleration Time 233.1 ms TR Peak Velocity 240.2 cm/s TR Peak Gradient 23.1 mmHg Right Ventricular Systolic Press 26.6 mmHg FINDINGS Left Ventricle Normal Left ventricular size. Mildly increased left ventricular wall thickness. , normal systolic function with no obvious regional wall motion abnormalities. Normal Left ventricular diastolic filling pattern. Left ventricular ejection fraction is estimated at 55-60 %. Right Ventricle The right ventricle is normal in size and function. Right ventricular systolic pressure within normal limits. Right Atrium The right atrium is normal in size. Left Atrium The left atrium is normal in size. Mitral Valve Structurally normal mitral valve without significant stenosis or prolapse. There is no mitral regurgitation. Aortic Valve Structurally normal aortic valve without significant sclerosis or stenosis. There is no aortic regurgitation. Tricuspid Valve Structurally normal tricuspid valve without significant stenosis. Pulmonary artery systolic pressure is normal. Trace to mild tricuspid regurgitation. Pulmonic Valve Structurally normal pulmonic valve without significant stenosis. There is no pulmonic regurgitation. Pericardium Normal pericardium without effusion. Aorta Normal aortic root dimension. CONCLUSIONS Normal LV size and systolic function. No significant abnormality on the Doppler exam. No pericardial effusion Previewed by: Dr. Quinton Pena MD (Electronically Signed) Final Date: 21 June 2021 07:36
[2021-06-21] MEDS: amLODIPine 5 MG TAB PO SCH (08:09)
[2021-06-21] MEDS: HEPARIN SODIUM,PORCINE/PF 5,000 UNIT/0.5 ML SYRINGE SQ SCH (08:09)
[2021-06-21] MEDS: FUROSEMIDE 10 MG/ML 4 ML VIAL IV SCH (08:10)
[2021-06-21] MEDS: METOPROLOL SUCCINATE (ER) 25 MG TAB.ER.24H PO SCH (08:10)
[2021-06-21 08:17] VITALS: PULSE 93
--- NOTE | 2021-06-21 08:39 | PN ---
PROGRESS NOTE This is a 35-year-old white male with congestive heart failure. Remains on Lasix, beta blockers, aspirin, MOOSE inhibitors. Cardiovascular S1-S2. Lungs clear. Hematology: Two plus edema. Psych fair mood and affect. ASSESSMENT: 1. Congestive heart failure. 2. Hypertension. 3. Muscular dystrophy. Awaiting echo report. Continue on treatments for systolic CHF. Prognosis guarded. MMODL / IJN: [id number] /
[2021-06-21] MEDS ORDERED: lisinopriL 20 MG TAB PO SCH (09:00)
[2021-06-21 11:57] VITALS: BP 124/84; TEMP 98.2
--- NOTE | 2021-06-21 13:34 | P.PN ---
Subjective Progress Note Date: 06/21/21 HISTORY OF PRESENT ILLNESS: Patient examined this morning in the intensive care unit. Patient denies chest pain or pressure. He denies shortness of breath. He remains on IV Lasix 40 mg every 12 hours. Lower extremity edema is improving. Patient's blood pressure remains elevated this morning with a systolic in the 160s. 06/21/2021 Patient examined this morning at the bedside. Patient denies chest pain or pressure. Patient denies short of breath. His lower extremity edema is improving. Patient remains on IV Lasix. Patient's blood pressure is better controlled today with a systolic in the 130s. PHYSICAL EXAM: VITAL SIGNS: Reviewed. GENERAL: Well-developed in no acute distress. NECK: Supple. No JVD or thyromegaly LUNGS: Respirations even and unlabored. Lungs diminished to auscultation bilaterally. HEART: Regular rate and rhythm. S1 and S2 heard. EXTREMITIES: Normal range of motion. No clubbing or cyanosis. Peripheral pulses intact. 1-2+ bilateral lower extremity edema ASSESSMENT: Acute onset congestive heart failure of unclear etiology, with preserved EF Uncontrolled hypertension Mildly elevated troponin of unclear significance PLAN: Continue current cardiac medications Discontinue IV lasix. Begin oral lasix 40mg daily. Abstinence from alcohol encouraged Smoking cessation recommended Further recommendations pending patient's course Nurse practitioner note has been reviewed by physician. Signing provider agrees with the documented findings, assessment, and plan of care. Objective - Vital Signs Vital signs: Vital Signs Temp 98.2 F 06/21/21 11:56 Pulse 93 06/21/21 11:56 Resp 18 06/21/21 11:56 BP 124/84 06/21/21 11:56 Pulse Ox 95 06/21/21 11:56 Intake & Output 06/20/21 06/21/21 06/21/21 18:59 06:59 18:59 Intake Total 860 1210 Output Total 700 550 600 Balance -700 310 610 Weight 80.9 kg Intake: IV 10 Invasive Line 1 10 Oral 860 1200 Output: Urine 700 550 600 Other: # Voids 1 - Labs CBC & Chem 7: 06/19/21 06:00 06/19/21 06:40 Labs: Abnormal Lab Results - Last 24 Hours (Table) 06/20/21 Range/Units 20:01 POC Glucose (mg/dL) 108 H (75-99) mg/dL Microbiology - Last 24 Hours (Table) 06/18/21 15:30 Blood Culture - Preliminary Blood No Growth after 48 hours 06/18/21 15:45 Blood Culture - Preliminary Blood No Growth after 48 hours
--- NOTE | 2021-06-21 18:22 | P.PN ---
Subjective Progress Note Date: 06/21/21 Principal diagnosis: Acute hypoxic respiratory failure Acute on chronic diastolic heart failure Hypertensive heart failure Bilateral basal atelectasis Extensive history of smoking and nicotine use History of muscular dystrophy 06/21/2021, patient seen eval examined during the rounds labs reviewed medications reviewed, oxygen saturation continued to improve now is 95% room air, blood pressure is improved with therapy, afebrile with temperature 90.8 breathing comfortably denies any chest pain agree with discharge planning from pulmonary standpoint with follow-up on outpatient basis so that a PFT and sleep study can be performed, echocardiogram revealed normal LV and ejection fraction, pro-calcitonin within normal limit Patient is a 35-year-old pleasant male with prior history of muscular dystrophy came into the hospital for evaluation off progressive shortness of breath which is been going on for last 2 weeks in addition patient was having lower extremity edema dry nonproductive cough is present, patient admitted into the hospital wit h hypoxia and desaturation oxygen saturation is mid to low 80s, with 4 L sats remains over around 88-90% however this morning oxygen saturation significantly improve on 4 L and 95-96% patient feels slightly better on specific questioning denies any chest pain or radiation of pain denies any hemoptysis has ongoing cough, denies any loss of consciousness or weakness dizziness lightheadedness, denies any fever and chills however does have problems associated orthopnea and dyspnea and PND which all have been progressive. Patient is noncompliant by history does not seek medical care mostly he is not on any medications. He has a extensive history of smoking and nicotine use used to smoke one and half to 2 packs per day. On arrival his chest x-ray significant for atelectasis on the lung bases, EKG is normal sinus rhythm, follow-up chest x-ray earlier this morning cardiomegaly interstitial edema by basilar atelectasis versus infiltrate. CBC mild erythrocytosis along with macrocytic appearance, kidney function within normal limit, troponin 2. initial 0.035 followed by a second set 0.0-8, covert as well as influenza negative, patient currently being treated with the antihypertensive agents along with diuretics. Throughout the stay blood pressure was elevated ranging from 157/100 Objective - Vital Signs Vital signs: Vital Signs Temp 98.2 F 06/21/21 11:56 Pulse 93 06/21/21 11:56 Resp 18 06/21/21 11:56 BP 124/84 06/21/21 11:56 Pulse Ox 95 06/21/21 11:56 Intake & Output 06/20/21 06/21/21 06/21/21 18:59 06:59 18:59 Intake Total 860 1460 Output Total 385 734 2454 Balance -700 310 260 Weight 80.9 kg Intake: IV 20 Invasive Line 1 20 Oral 860 1440 Output: Urine 812 499 7423 Other: # Voids 1 - Exam - Constitutional General appearance: average body habitus, disheveled, morbidly obese - EENT Eyes: EOMI, PERRLA ENT: normal oropharynx Ears: bilateral: normal - Neck Neck: normal ROM Carotids: bilateral: upstroke normal - Respiratory Respiratory: bilateral: rales (Bilateral and inspiratory), wheezing (Fine on forced expiration) - Cardiovascular Rhythm: regular Heart sounds: normal: S1, S2 - Gastrointestinal General gastrointestinal: normal bowel sounds, soft - Integumentary Integumentary: normal turgor - Neurologic Neurologic: CNII-XII intact - Musculoskeletal Musculoskeletal: gait normal, generalized weakness, strength equal bilaterally - Psychiatric Psychiatric: A&O x's 3, appropriate affect, intact judgment & insight - Labs CBC & Chem 7: 06/19/21 06:00 06/19/21 06:40 Labs: Abnormal Lab Results - Last 24 Hours (Table) 06/20/21 Range/Units 20:01 POC Glucose (mg/dL) 108 H (75-99) mg/dL Microbiology - Last 24 Hours (Table) 06/18/21 15:45 Blood Culture - Preliminary Blood No Growth after 72 hours 06/18/21 15:30 Blood Culture - Preliminary Blood No Growth after 72 hours Assessment and Plan Assessment: Acute hypoxic respiratory failure, improved now on room air without any supplemental oxygen Acute on chronic diastolic heart failure Hypertensive heart failure Bilateral basal atelectasis Extensive history of smoking and nicotine use History of muscular dystrophy Likely sleep disorder breathing and sleep apnea Plan: Gentle diuresis reviewed echocardiogram Hold on steroids and antibiotics for now Continue antihypertensive agents Patient likely has a sleep disorder breathing and sleep apnea to be evaluated further outpatient basis
[2021-06-22] MEDS ORDERED: FUROSEMIDE 40 MG TAB PO SCH (09:00)
== END 2021-06-21 18:29 | disposition home or self-care (01) | DRG 291 ==
LOC: EC 13:22 → 3SCARD 19:08 → 2SICU 06-19 15:48 → 3SCARD 06-20 18:19
PROVIDERS: ADMIT Family Medicine; ATTEND Family Medicine
DX: I11.0 Hypertensive heart disease with heart failure (principal); I50.33 Acute on chronic diastolic (congestive) heart failure; J96.01 Acute respiratory failure with hypoxia; J98.11 Atelectasis; G71.00 Muscular dystrophy, unspecified; E66.01 Morbid (severe) obesity due to excess calories; Z20.822 Contact with and (suspected) exposure to COVID-19; K21.9 Gastro-esophageal reflux disease without esophagitis; M54.50 Low back pain, unspecified; G47.30 Sleep apnea, unspecified; R77.8 Other specified abnormalities of plasma proteins; Z68.28 Body mass index [BMI] 28.0-28.9, adult; F10.10 Alcohol abuse, uncomplicated; F17.210 Nicotine dependence, cigarettes, uncomplicated; Z71.6 Tobacco abuse counseling; Z91.19 Patient's noncompliance with other medical treatment and regimen; Z87.81 Personal history of (healed) traumatic fracture; Z87.39 Personal history of other diseases of the musculoskeletal system and connective tissue; Z88.0 Allergy status to penicillin; Z71.41 Alcohol abuse counseling and surveillance of alcoholic; Z82.49 Family history of ischemic heart disease and other diseases of the circulatory system; Z83.49 Family history of other endocrine, nutritional and metabolic diseases
CPT/HCPCS: 36415; 71046; 71275; 80048; 80053; 83605; 83880; 84145; 84443; 84484; 85025; 85379; 85610; 85730; 87040; 87502; 87635; 93005; 93306; 94760; 96372; 96374; 99285

== ENCOUNTER 2023-05-09 18:00 | Emergency (ER) | payer MEDICARE ==
[2023-05-09 18:32] VITALS: BP 148/88; PULSE 82; RESP 18; TEMP 98.7
[2023-05-09 20:03] LABS: Appearance,Urine Clear (Clear); Bacteria,Urine Rare /hpf; Bilirubin,Urine 1+ (Negative); Blood,Urine Negative (Negative); Color,Urine Dark Yellow; Glucose,Urine (UA) Negative (Negative); Hyaline Casts,Urine 3 /lpf (0-2); Ketones,Urine Trace (Negative); Leukocyte Esterase,Urine Small (Negative); Mucus,Urine Rare /hpf; Nitrite,Urine Negative (Negative); PH, Urine 8.5 (5.0-8.0); Protein,Urine 1+ (Negative); RBC,Urine <1 /hpf (0-5); Squamous Epithelial Cell,Urine 2 /hpf (0-4); WBC,Urine 10 /hpf (0-5)
[2023-05-09 20:42] LABS: Basophils # (A) 0.1 k/uL (0-0.2); Basophils % (A) 1 %; Eosinophils # (A) 0.1 k/uL (0-0.7); Eosinophils % (A) 2 %; Lymphocytes # (A) 0.9 k/uL (1.0-4.8); Lymphocytes % (A) 10 %; MCH 34.5 pg (25.0-35.0); MCHC 33.4 g/dL (31.0-37.0); MCV 103.3 fL (80.0-100.0); Macrocytosis Slight; Mean Platelet Volume 7.5; Monocytes # (A) 0.5 k/uL (0-1.0); Monocytes % (A) 6 %; Neutrophils % (A) 80 %; Platelet Count 186 k/uL (150-450); RBC 6.09 m/uL (4.30-5.90); RDW 13.3 % (11.5-15.5); WBC 8.8 k/uL (3.8-10.6)
[2023-05-09 20:49] LABS: HCT 62.9 % (39.0-53.0)
[2023-05-09 21:05] LABS: ALT 168 U/L (4-49); African American GFR (CKD) >90 (>60 ml/min/1.73 sqM); Albumin 4.4 g/dL (3.5-5.0); Amylase 51 U/L (30-110); Anion Gap 10 mmol/L; Blood Urea Nitrogen 7 mg/dL (9-20); Calcium 9.8 mg/dL (8.4-10.2); Carbon Dioxide 27 mmol/L (22-30); Chloride 98 mmol/L (98-107); Glucose 104 mg/dL (74-99); Lipase 116 U/L (23-300); Non-African American GFR(CKD) >90 (>60 ml/min/1.73 sqM); Sodium 135 mmol/L (137-145); Total Bilirubin 2.9 mg/dL (0.2-1.3); Total Protein 8.1 g/dL (6.3-8.2)
[2023-05-09 21:14] LABS: Large Platelets Present; Polychromasia Present
[2023-05-09 21:32] LABS: AST 317 U/L (17-59); Alkaline Phosphatase 210 U/L (38-126)
--- NOTE | 2023-05-09 21:46 | ED ---
Abdominal Pain HPI - General Chief Complaint: Abdominal Pain Stated Complaint: Stomach pain Time Seen by Provider: 05/09/23 19:19 Source: patient Mode of arrival: ambulatory Limitations: no limitations - History of Present Illness Initial Comments: 37-year-old male with a past medical history significant for [place]-Mzmqf-[place]ucsw disorder presenting to the ED with a chief complaint of abdominal pain. Reports this pain has been intermittent for the last 3 to 4 weeks however reports last night it became acutely more painful in the upper abdomen radiating to his back. Patient also notes onset of nausea last night as well. No changes in bowel or bladder habits. No chest pain or shortness does also note a history of CHF currently follows with a cloth washer for. Reports that he does become itchy especially of his lower extremities after taking showers. - Related Data Previous Rx's Medication Instructions Recorded Furosemide [Lasix] 40 mg PO DAILY 90 Days #90 tab 06/21/21 Metoprolol Succinate (ER) [Toprol 25 mg PO DAILY 90 Days #90 capsule 06/21/21 XL] amLODIPine [Norvasc] 5 mg PO DAILY 90 Days #90 tab 06/21/21 lisinopriL [Zestril] 20 mg PO DAILY 90 Days #90 tab 06/21/21 Ondansetron Odt [Zofran Odt] 4 mg PO Q8HR PRN #10 tab 05/09/23 Allergies Allergy/AdvReac Type Severity Reaction Status Date / Time amoxicillin Allergy Rash/Hives Verified 05/09/23 18:23 Review of Systems ROS Statement: Those systems with pertinent positive or pertinent negative responses have been documented in the HPI. ROS Other: All systems not noted in ROS Statement are negative. Past Medical History Past Medical History: GERD/Reflux, Musculoskeletal Disorder, Neurologic Disorder Additional Past Medical History / Comment(s): muscular dystrophy, low back pain History of Any Multi-Drug Resistant Organisms: None Reported Past Surgical History: Orthopedic Surgery Additional Past Surgical History / Comment(s): R arm fracture with surgery, bilateral feet surgery d/t complications of MD Past Anesthesia/Blood Transfusion Reactions: No Reported Reaction Past Psychological History: No Psychological Hx Reported Smoking Status: Current every day smoker Past Alcohol Use History: Occasional Past Drug Use History: Marijuana - Past Family History Father Family Medical History: Hyperlipidemia, Hypertension Mother Family Medical History: Hyperlipidemia, Hypertension General Exam Limitations: no limitations General appearance: alert, in no apparent distress Eye exam: Present: normal appearance ENT exam: Present: other (Erythema of the face) Neck exam: Present: normal inspection Respiratory exam: Present: normal lung sounds bilaterally Cardiovascular Exam: Present: regular rate, normal rhythm GI/Abdominal exam: Present: soft (Diffuse upper abdominal tenderness to palpation. No rebound guarding or rigidity. Normal bowel sounds. No significant CVA tenderness to percussion bilaterally.) Neurological exam: Present: alert, oriented X3 Skin exam: Present: warm, dry Course Vital Signs 05/09/23 18:19 Temperature 98.7 F Pulse Rate 82 Respiratory 18 Rate Blood Pressure 148/88 O2 Sat by Pulse 96 Oximetry Medical Decision Making - Medical Decision Making Was pt. sent in by a medical professional or institution ([facility], [employer], urgent care, hospital, or half-way...) When possible be specific @ -No Did you speak to anyone other than the patient for history (EMS, parent, family, police, friend...)? What history was obtained from this source @ -No Did you review nursing and triage notes (agree or disagree)? Why? @ -I reviewed and agree with nursing and triage notes Were old charts reviewed (outside hosp., previous admission, EMS record, old EKG, old radiological studies, urgent care reports/EKG's, half-way records)? Report findings @ -No old charts were reviewed Differential Diagnosis (chest pain, altered mental status, abdominal pain women, abdominal pain men, vaginal bleeding, weakness, fever, dyspnea, syncope, headache, dizziness, GI bleed, back pain, seizure, CVA, palpatations, mental health, musculoskeletal)? @ -Differential Abdominal Pain Men: Appendicitis, cholecystitis, diverticulosis, ischemic bowel, pancreatitis, hepatitis, UTI, gastroenteritis, AAA, incarcerated hernia, bowel obstruction, constipation, inflammatory bowel, hepatitis, peptic ulcer disease, splenic infarction, perforated viscus, testicular torsion, this is not meant to be an all-inclusive list EKG interpreted by me (3pts min.). @ -As above X-rays interpreted by me (1pt min.). @ -None done CT interpreted by me (1pt min.). @ -None done U/S interpreted by me (1pt. min.). @ -None done What testing was considered but not performed or refused? (CT, X-rays, U/S, labs)? Why? @ -None What meds were considered but not given or refused? Why? @ -None Did you discuss the management of the patient with other professionals (pr ofessionals i.e. , PA, [employer], lab, RT, psych nurse, social work nurse, [place] police lieutenant, teacher, surveillance dual rate officer, case assistant)? Give summary @ -No Was smoking cessation discussed for >3mins.? @ -No Was critical care preformed (if so, how long)? @ -No Were there social determinants of health that impacted care today? How? (Homelessness, low income, unemployed, alcoholism, drug addiction, transportation, low edu. Level, literacy, decrease access to med. care, longterm, rehab)? @ -No Was there de-escalation of care discussed even if they declined (Discuss DNR or withdrawal of care, Hospice)? DNR status @ -No What co-morbidities impacted this encounter? (DM, HTN, Smoking, COPD, CAD, Cancer, CVA, ARF, Chemo, Hep., AIDS, mental health diagnosis, sleep apnea, morbid obesity)? @ -None Was patient admitted / discharged? Hospital course, mention meds given and route, prescriptions, significant lab abnormalities, going to OR and other pertinent info. @ -Discharge 37-year-old male presenting to the ED with a chief complaint of abdominal pain. Reports that he has had intermittent upper abdominal pain for the last few weeks however last night became worse in nature with some associated nausea, no vomiting. Laboratory studies reviewed. CBC significant for an elevated white blood cell count at 6.09, hemoglobin 21, hematocrit 62.9, MCV 103.3. Chemistry panel significant for transaminitis with a total bili of 2.9, AST of 317, ALT of 168, alk phos of 210. UA largely unremarkable. Serology panel negative. CT abdomen pelvis revealed no acute findings. Ultrasound of the gallbladder was unable to fully visualize the gallbladder however otherwise showed no evidence of acute findings. Provided referral to primary care. Undiagnosed new problem with uncertain prognosis? @ -No Drug Therapy requiring intensive monitoring for toxicity (Heparin, Nitro, Insulin, Cardizem)? @ -No Were any procedures done? @ -No Diagnosis/symptom? @ -Abdominal pain Acute, or Chronic, or Acute on Chronic? @ -Acute Uncomplicated (without systemic symptoms) or Complicated (systemic symptoms)? @ -Uncomplicated Side effects of treatment? @ -No Exacerbation, Progression, or Severe Exacerbation? @ -No Poses a threat to life or bodily function? How? (Chest pain, [place], [place], pneumonia, PE, COPD, DKA, ARF, appy, cholecystitis, CVA, Diverticulitis, Homicidal, Suicidal, threat to staff... and all critical care pts) @ -Unlikely - Lab Data Result diagrams: 05/09/23 20:08 05/09/23 20:08 Lab Results 05/09/23 05/09/23 05/09/23 Range/Units 19:46 20:08 20:08 WBC 8.8 (3.8-10.6) k/uL RBC 6.09 H (4.30-5.90) m/uL Hgb 21.0 H* (13.0-17.5) gm/dL Hct 62.9 H* (39.0-53.0) % MCV 103.3 H (80.0-100.0) fL MCH 34.5 (25.0-35.0) pg MCHC 33.4 (31.0-37.0) g/dL RDW 13.3 (11.5-15.5) % Plt Count 186 (150-450) k/uL MPV 7.5 Neutrophils % 80 % Lymphocytes % 10 % Monocytes % 6 % Eosinophils % 2 % Basophils % 1 % Neutrophils # 7.0 (1.3-7.7) k/uL Lymphocytes # 0.9 L (1.0-4.8) k/uL Monocytes # 0.5 (0-1.0) k/uL Eosinophils # 0.1 (0-0.7) k/uL Basophils # 0.1 (0-0.2) k/uL Manual Slide Review Performed Large Platelets Present Polychromasia Present Macrocytosis Slight Sodium 135 L (137-145) mmol/L Potassium 5.0 (3.5-5.1) mmol/L Chloride 98 (98-107) mmol/L Carbon Dioxide 27 (22-30) mmol/L Anion Gap 10 mmol/L BUN 7 L (9-20) mg/dL Creatinine 0.72 (0.66-1.25) mg/dL Est GFR (CKD-EPI)AfAm >90 (>60 ml/min/1.73 sqM) Est GFR (CKD-EPI)NonAf >90 (>60 ml/min/1.73 sqM) Glucose 104 H (74-99) mg/dL Plasma Lactic Acid Omid (0.7-2.0) mmol/L Calcium 9.8 (8.4-10.2) mg/dL Total Bilirubin 2.9 H (0.2-1.3) mg/dL AST 317 H (17-59) U/L ALT 168 H (4-49) U/L Alkaline Phosphatase 210 H (38-126) U/L Total Protein 8.1 (6.3-8.2) g/dL Albumin 4.4 (3.5-5.0) g/dL Amylase 51 (30-110) U/L Lipase 116 (23-300) U/L Urine Color Dark Yellow Urine Appearance Clear (Clear) Urine pH 8.5 H (5.0-8.0) Ur Specific [place] 1.020 (1.001-1.035) Urine Protein 1+ H (Negative) Urine Glucose (UA) Negative (Negative) Urine Ketones Trace H (Negative) Urine Blood Negative (Negative) Urine Nitrite Negative (Negative) Urine Bilirubin 1+ H (Negative) Urine Urobilinogen 3.0 (<2.0) mg/dL Ur Leukocyte Esterase Small H (Negative) Urine RBC <1 (0-5) /hpf Urine WBC 10 H (0-5) /hpf Ur Squamous Epith Cells 2 (0-4) /hpf Urine Bacteria Rare H (None) /hpf Hyaline Casts 3 H (0-2) /lpf Urine Mucus Rare H (None) /hpf Influenza Type A (PCR) (Not Detectd) Influenza Type B (PCR) (Not Detectd) RSV (PCR) (Not Detectd) SARS-CoV-2 (PCR) (Not Detectd) 05/09/23 05/09/23 Range/Units 20:08 21:28 WBC (3.8-10.6) k/uL RBC (4.30-5.90) m/uL Hgb (13.0-17.5) gm/dL Hct (39.0-53.0) % MCV (80.0-100.0) fL MCH (25.0-35.0) pg MCHC (31.0-37.0) g/dL RDW (11.5-15.5) % Plt Count (150-450) k/uL MPV Neutrophils % % Lymphocytes % % Monocytes % % Eosinophils % % Basophils % % Neutrophils # (1.3-7.7) k/uL Lymphocytes # (1.0-4.8) k/uL Monocytes # (0-1.0) k/uL Eosinophils # (0-0.7) k/uL Basophils # (0-0.2) k/uL Manual Slide Review Large Platelets Polychromasia Macrocytosis Sodium (137-145) mmol/L Potassium (3.5-5.1) mmol/L Chloride (98-107) mmol/L Carbon Dioxide (22-30) mmol/L Anion Gap mmol/L BUN (9-20) mg/dL Creatinine (0.66-1.25) mg/dL Est GFR (CKD-EPI)AfAm (>60 ml/min/1.73 sqM) Est GFR (CKD-EPI)NonAf (>60 ml/min/1.73 sqM) Glucose (74-99) mg/dL Plasma Lactic Acid Omid 1.0 (0.7-2.0) mmol/L Calcium (8.4-10.2) mg/dL Total Bilirubin (0.2-1.3) mg/dL AST (17-59) U/L ALT (4-49) U/L Alkaline Phosphatase (38-126) U/L Total Protein (6.3-8.2) g/dL Albumin (3.5-5.0) g/dL Amylase (30-110) U/L Lipase (23-300) U/L Urine Color Urine Appearance (Clear) Urine pH (5.0-8.0) Ur Specific [place] (1.001-1.035) Urine Protein (Negative) Urine Glucose (UA) (Negative) Urine Ketones (Negative) Urine Blood (Negative) Urine Nitrite (Negative) Urine Bilirubin (Negative) Urine Urobilinogen (<2.0) mg/dL Ur Leukocyte Esterase (Negative) Urine RBC (0-5) /hpf Urine WBC (0-5) /hpf Ur Squamous Epith Cells (0-4) /hpf Urine Bacteria (None) /hpf Hyaline Casts (0-2) /lpf Urine Mucus (None) /hpf Influenza Type A (PCR) Not Detected (Not Detectd) Influenza Type B (PCR) Not Detected (Not Detectd) RSV (PCR) Not Detected (Not Detectd) SARS-CoV-2 (PCR) Not Detected (Not Detectd) Disposition Clinical Impression: Abdominal pain Disposition: HOME SELF-CARE Condition: Good Additional Instructions: Please return to the Emergency Department if symptoms worsen or any other concerns. Please follow-up with primary care. Prescriptions: Ondansetron Odt [Zofran Odt] 4 mg PO Q8HR PRN #10 tab PRN Reason: Nausea Is patient prescribed a controlled substance at d/c from ED?: No Referrals: None,Stated [Primary Care Provider] - 1-2 days Anil Chand MD [STAFF PHYSICIAN] - 1-2 days Tray Grceo MD [REFERRING] - 1-2 days Kirill Garibay MD [STAFF PHYSICIAN] - 1-2 days Luis Alexander DO [STAFF PHYSICIAN] - 1-2 days Jeff Mejia MD [REFERRING] - 1-2 days Kirill Washburn MD [STAFF PHYSICIAN] - 1-2 days Mono Sanchez [REFERRING] - 1-2 days Time of Disposition: 23:27
--- NOTE | 2023-05-09 21:54 | US ---
EXAMINATION TYPE: US gallbladder DATE OF EXAM: 05/09/2023 COMPARISON: NONE CLINICAL INDICATION: Male, 37 years old with history of Abdominal Pain; abdominal pain x 1 day Extremely limited due to excessive bowel gas TECHNIQUE: Multiple sonographic images of the right upper quadrant are obtained. FINDINGS: EXAM MEASUREMENTS: Liver Length: 15.1 cm Gallbladder Wall: 0.2 cm CBD: Not seen Right Kidney: 10.0 x 5.3 x 4.7 cm REAMER HAND NOTES: Pancreas: Obscured by bowel gas Liver: Limited appears wnl Gallbladder: Not well visualized Evidence for sonographic Wallace's sign: No CBD: Not seen Right Kidney: wnl IMPRESSION: 1. Exam extremely limited due to bowel gas. Nonvisualization of the pancreas and CBD. 2. Gallbladder not well seen, but no acute findings are noted.
[2023-05-09] MEDS: KETOROLAC 15 MG/ML 1 ML VIAL IVP STA (22:09)
--- NOTE | 2023-05-09 22:55 | CT ---
EXAM: CT Abdomen and Pelvis With Intravenous Contrast CLINICAL HISTORY: ITS.REASON CT Reason: erythrocytosis, abdominal pain TECHNIQUE: Axial computed tomography images of the abdomen and pelvis with intravenous contrast. CTDI is 18.0 mGy and DLP is 957.3 mGy-cm. This CT exam was performed using one or more of the following dose reduction techniques: automated exposure control, adjustment of the mA and/or kV according to patient size, and/or use of iterative reconstruction technique. COMPARISON: No relevant prior studies available. FINDINGS: Lung bases: Unremarkable. No mass. No consolidation. ABDOMEN: Liver: Hepatic steatosis. Gallbladder and bile ducts: Cholelithiasis. No ductal dilation. Pancreas: Unremarkable. No mass. No ductal dilation. Spleen: Unremarkable. No splenomegaly. Adrenals: Unremarkable. No mass. Kidneys and ureters: Unremarkable. No hydronephrosis or delayed nephrogram. Stomach and bowel: Diverticulosis, without acute diverticulitis. No bowel obstruction. No free air. PELVIS: Appendix: No acute appendicitis. Bladder: Decompressed urinary bladder. Reproductive: Unremarkable as visualized. ABDOMEN and PELVIS: Intraperitoneal space: See above. Bones/joints: No acute fracture. No dislocation. Degenerative changes of the spine. Soft tissues: Unremarkable. Vasculature: Unremarkable. No abdominal aortic aneurysm. Lymph nodes: Unremarkable. No enlarged lymph nodes. IMPRESSION: No acute findings in the abdomen or pelvis.
== END 2023-05-09 23:38 | disposition home or self-care (01) ==
LOC: EC 18:00
DX: R10.10 Upper abdominal pain, unspecified (principal); F17.200 Nicotine dependence, unspecified, uncomplicated; F12.90 Cannabis use, unspecified, uncomplicated; Z88.0 Allergy status to penicillin; Z20.822 Contact with and (suspected) exposure to COVID-19
CPT/HCPCS: 36415; 80053; 82150; 83605; 83690; 85025; 81001; 82668; 87636; 76705; 74177; 99284; 96374; J1885; Q9967

== ENCOUNTER → 2024-07-09 | Outpatient (CLI) | payer MEDICARE ==
[2024-07-09 14:18] LABS: ABG Base Excess 6.7 mmol/L; ABG HCO3 33 mmol/L (21-25); ABG Oxygen Saturation 91.1 % (94-97); ABG PCO2 51 mmHg (35-45); ABG PH 7.42 (7.35-7.45); ABG TCO2 35 mmol/L (19-24); Allen Test Performed? Yes
[2024-07-09 14:28] LABS: ABG PO2 57 mmHg (83-108)
== END | disposition home or self-care (01) ==
LOC: LABWHC1 13:28
PROVIDERS: ATTEND Internal Medicine
DX: R06.02 Shortness of breath (principal)
CPT/HCPCS: 36600; 82805